=== PATIENT | female | born 1970 | race Caucasian/White ===

== ENCOUNTER 2019-02-08 21:02 | Emergency (ER) | payer OTHER ==
[~2019-02-08] VITALS: Ht 162.6 cm; Wt 95.3 kg
[2019-02-08 21:39] VITALS: BP 160/81
--- NOTE | 2019-02-08 21:44 | PHYS DOC ---
Past Medical History Past Medical History: Hypertension (JUAN R MANRIQUEZ) Past Surgical History: No Surgical History (JUAN R MANRIQUEZ) Alcohol Use: Occasionally Drug Use: None (JUAN R MANRIQUEZ) Adult General Chief Complaint Chief Complaint: Congestion HPI HPI Patient is a 49 year old F who is here with congestion, sore throat and cough for 3.5 weeks. She states she was seen at and given cough syrup but it hasn't helped. (JUAN R MANRIQUEZ) Review of Systems Review of Systems Constitutional: Denies fever or chills HENT: Reports nasal congestion, sore throat Respiratory: Reports cough Cardiovascular: Denies chest pain GI: Denies abdominal pain, nausea, vomiting, bloody stools or diarrhea Musculoskeletal: Denies back pain or joint pain Integument: Denies rash or skin lesions Neurologic: Denies headache, focal weakness or sensory changes All other systems were reviewed and found to be within normal limits, except as documented in this note. (JUAN R MANRIQUEZ) Allergies Allergies Allergies Coded Allergies Type Severity Reaction Last Updated Verified Penicillins Allergy Intermediate HIVES 01/07/15 Yes tetanus & diphtheria toxoids Allergy Intermediate HIVES 01/07/15 Yes (MARICARMEN FABIAN MD) Physical Exam Physical Exam Constitutional: Well developed, well nourished, no acute distress, non-toxic appearance. HENT: Normocephalic, atraumatic, bilateral external ears normal, oropharynx moist, no oral exudates, clear nasal congestion, maxillary sinuses tender B Eyes: PERRLA, EOMI, conjunctiva normal, no discharge. Neck: Normal range of motion, no tenderness, supple, no stridor. Cardiovascular:Heart rate regular rhythm, no murmur Lungs & Thorax: Bilateral breath sounds clear to auscultation. Cough noted. Abdomen: Bowel sounds normal, soft, no tenderness, no masses, no pulsatile masses. Skin: Warm, dry, no erythema, no rash. Back: No tenderness, no CVA tenderness. Extremities: No tenderness, no cyanosis, no clubbing, ROM intact, no edema. Neurologic: Alert and oriented X 3, normal motor function, normal sensory function, no focal deficits noted. Psychologic: Affect normal, judgement normal, mood normal. (JUAN R MANRIQUEZ) Current Patient Data Vital Signs Vital Signs Date Time Temp Pulse Resp B/P (MAP) Pulse Ox O2 Delivery O2 Flow Rate FiO2 02/08/19 21:39 98.2 63 20 160/81 (107) 97 Room Air 98.2 (MARICARMEN FABIAN MD) EKG EKG [] (JUAN R MANRIQUEZ) Radiology/Procedures Radiology/Procedures [] (JUAN R MANRIQUEZ) Course & Med Decision Making Course & Med Decision Making Pertinent Labs and Imaging studies reviewed. (See chart for details) Due to prolonged symptoms without improvement, agreed to treat with zpack, steroids and inhaler at this time. Pt to f/u closely with PCP and return if symptoms worsen at anytime. (JUAN R MANRIQUEZ) Course & Med Decision Making Staff Physician Addendum: I was working in the ER during the course of this patient's visit. I was available for consultation as needed, but I was not directly involved in the care of this patient. (MARICARMEN FABIAN MD) Dragon Disclaimer Dragon Disclaimer This electronic medical record was generated, in whole or in part, using a voice recognition dictation system. (JUAN R MANRIQUEZ) Departure Departure Impression: Primary Impression: Bronchitis Disposition: 01 HOME, SELF-CARE Condition: STABLE Referrals: NO PCP (PCP) Patient Instructions: Bronchitis, [id number] Scripts Prednisone (PREDNISONE) 50 Mg Tablet 1 TAB PO DAILY, #5 TAB Prov: JUAN R MANRIQUEZ 02/08/19 Azithromycin (AZITHROMYCIN PACKET) 1 Gm Packet 1 PACKET PO ONCE, #1 PACKET Prov: JUAN R MANRIQUEZ 02/08/19 Albuterol Sulfate (PROAIR HFA INHALER) 8.5 Gm Hfa.aer.ad 1 PUFF INH PRN Q6HRS PRN for SHORTNESS OF BREATH, #1 INHALER 0 Refills Prov: JUAN R MANRIQUEZ 02/08/19 JUAN R MANRIQUEZ Feb 08, 2019 21:44 MARICARMEN FABIAN MD Feb 14, 2019 07:52
[2019-02-08] MEDS ORDERED: AZIT1PAC9 PO (21:47)
[2019-02-08] MEDS ORDERED: PRED50TA PO (21:47)
[2019-02-08] MEDS ORDERED: ALBU2.5V8 INH (21:47)
== END 2019-02-08 21:53 | disposition home or self-care (01) ==
LOC: ER 21:02
DX: J40 Bronchitis, not specified as acute or chronic (principal); I10 Essential (primary) hypertension; Z88.0 Allergy status to penicillin; Z88.7 Allergy status to serum and vaccine
CPT/HCPCS: 99283